=== PATIENT | female | born 1985 | race African-American/Black ===

== ENCOUNTER 2021-06-04 19:13 | Emergency (ER) | payer OTHER, SELFPAY ==
[2021-06-04 19:27] VITALS: BP 146/99; PULSE 82; RESP 16; TEMP 37.2; O2SAT 99
--- NOTE | 2021-06-04 19:36 | ED.UPPEXIN ---
HPI - Extremity Injury (Upper) General Chief Complaint: Extremity Injury, Upper Stated Complaint: right hand pain Source: patient and RN notes reviewed Limitations: no limitations History of Present Illness HPI narrative: The patient, who is right-handed insurance checker, presents with right thumb pain. The patient states she was in a minor [place] over the weekend. She was fine for day and the following second day she developed right hand discomfort and her thumb especially the ulnar aspect. No bleeding, deformity, bruising; symptoms are mild, worse with activity and computer work. Discussed causes and plan to splint, refer to hand surgery; patient she prefers reusable, weatherproof OTC splinting. Related Data Home Medications Medication Instructions Recorded Confirmed alprazolam 06/04/21 atenolol 06/04/21 rosuvastatin mg 06/04/21 Allergies Allergy/AdvReac Type Severity Reaction Status Date / Time No Known Allergies Allergy Unknown Verified 12/22/16 11:05 Review of Systems Review of Systems: General/Constitutional: No weight loss,fever Eyes: N0: Redness,discharge Ears/Nose/Throat: No: Epistaxis,ear discharge Respiratory: Denies: Hemoptysis Gastrointestinal: No Vomiting, Bleeding-rectal Skin: No Lumps, eruption Neurologic: No Focal Weakness,Sz Hematologic: Denies: Petechiae/Purpura Psychiatric: No: Suicida ideationl All Other Systems: Reviewed and Negative PMFSH Comments At time of signature, agree with nursing past medical, surgical, social and family history. There is no relevant family history pertinent to the presenting complaint Exam Narrative: General Appearance: Well appearing,, Conjunctiva clear Mouth/Throat: Normal appearing, Normal lips, Supple Respiratory: Airway patent, No respiratory distress MS-hand: Normal strength (mostly intact, limited flexion/extension by pain), Tenderness (ulnar collateral ligament, with mild decreased ROM), no swelling (laterally), Other (no anterior drawer, some collateral laxity yet with good endpoint) Skin: Warm, Dry, Normal color Neurological: A&O x3, Speech clear, CN II-XII intact Psychiatric: Normal mood, Normal affect Course Vital Signs Vital signs: Vital Signs Temperature 98.9 F 06/04/21 19:27 Pulse Rate 82 06/04/21 19:27 Respiratory Rate 16 06/04/21 19:27 Blood Pressure 146/99 H 06/04/21 19:27 Pulse Oximetry 99 09/21/21 19:27 Temperature 98.9 F 06/04/21 19:27 Pulse Rate 82 06/04/21 19:27 Respiratory Rate 16 06/04/21 19:27 Blood Pressure 146/99 H 06/04/21 19:27 Pulse Oximetry 99 06/04/21 19:27 Discharge Plan Discharge Clinical Impression: Sprain of ulnar collateral ligament of metacarpophalangeal (MCP) joint of right thumb Qualifiers: Encounter type: initial encounter Qualified Code(s): S63.641A - Sprain of metacarpophalangeal joint of right thumb, initial encounter Patient Disposition: Home, Self-Care Condition: Stable Instructions: Skier's Thumb (ED) Additional Instructions: Get and wear splint; see hand doctor in follow-up Prescriptions: New tramadol 50 mg tablet 50 - 75 mg PO Q6H PRN (Reason: pain) Qty: 20 RF: 0 No Action atenolol 25 mg tablet RF: 0 alprazolam 0.25 mg tablet RF: 0 rosuvastatin 10 mg tablet RF: 0 Follow-up/Referrals: UNKNOWN,DOCTOR [Primary Care Provider] -
== END 2021-06-04 19:48 | disposition home or self-care (01) ==
PROVIDERS: Emergency Provider Emergency Medicine
DX: S63.641A Sprain of metacarpophalangeal joint of right thumb, initial encounter (principal); V89.2XXA Person injured in unspecified motor-vehicle accident, traffic, initial encounter
CPT/HCPCS: 99212; G0463